=== PATIENT | male | born 1995 | race Caucasian/White ===

== ENCOUNTER 2017-06-29 16:06 | Emergency (ER) | payer BC, OTHER ==
--- NOTE | 2017-06-29 16:19 | ERNOTE ---
Medical Problem HPI - Narrative Date of Service: 06/29/17 - General Chief Complaint: Laceration Time Seen by Provider: 06/29/17 16:16 Source: patient, RN notes reviewed Exam Limitations: no limitations - Immun/Allergies/Home Medications Immunizations: IMMUNIZATION HX Immunizations Up to Date Yes History of Influenza Vaccine No Hx Pneumococcal Vaccination No Allergies/Adverse Reactions: Allergies No Known Allergies Allergy (Verified 06/29/17 16:14) Home Medications: HOME MEDICATIONS NK [No Home Medication] 06/29/17 [Last Taken Unknown] - History of Present History Narrative: 22 year old male with a laceration to his right palm. He was pushing an engine with a pry bar, when the bar slipped and cut his hand. He was working at [employer] at the time. Date (Duration): 06/29/17 Review of Systems - Review of Systems Constitutional: Absent: recent illness, fever, malaise EYE: Present: no symptoms reported ENT: Present: no symptoms reported Respiratory: Present: no symptoms reported Cardiology: Present: no symptoms reported Gastrointestinal/Abdominal: Present: no symptoms reported Genitourinary: Present: no symptoms reported Musculoskeletal: Absent: joint pain, joint swelling Skin: Absent: rash, lesions, lumps, change in color Neurological: Absent: dizziness/light-headedness, weakness, numbness, tingling Endocrine: Present: no symptoms reported Hematologic/Lymphatic: Absent: easy bruising, easy bleeding Psych: Present: no symptoms reported - Patient's Past Medical History Patient History - Medical: No pertinent hx Patient History - Cardiac/Respiratory: No pertinent hx Patient History - Cancer: No Hx of Cancer Patient History - Surgical Procedures: Orthopedic Patient History - Other: None - Social History Living Situations: home Abuse History: No History of abuse Psych History: No pertinent hx Smoking Status: Never smoker Alcohol Use: occasionally Drug Use: none - Immunizations Immunizations Up to Date: Yes Hx Pneumococcal Vaccination: No History of Influenza Vaccine: No Physical Exam - Physical Exam General Appearance: Present: wd/wn, alert, no apparent distress Respiratory: Present: no respiratory distress, no accessory muscle use Cardiovascular/Chest: Present: normal peripheral pulses Extremity Exam: Present: normal except - - Right palm laceration, normal range of motion, no edema Neurological Exam: Present: alert, oriented, normal mood/affect Skin Exam: Present: normal color, warm/dry ED Progress - Vital Signs Patient's Vital Signs:: I have reviewed the patient's vital signs. Vital Signs: Vital Signs 06/29/17 16:09 Temperature 36.6 C Pulse Rate 100 Respiratory 16 Rate Blood Pressure 137/53 O2 Sat by Pulse 98 Oximetry - Progress/Reassessment Chief Complaint: Laceration Progress:: Improved Procedures Right Volar Hand Anesthesia: Lidocaine w/ Epi I & D Prep: betadine prep, sterile drapes applied Length of Repair/Wound (cm): 2.5 Wound's Depth/Shape: into subcutaneous, irregular, contused tissue Wound Explored: clean, to base, in bloodless field, no foreign body Wound Intervention: irrigated w/saline, debrided minimal Distal NVT: neuro/vasc intact, no tendon injury Wound Repaired With: sutures Suture Size/Type: 5-0, nylon Number of Sutures: 7 Layer Closure: Simple Wound Dressing: sterile dressing applied Complications: Pt amando procedure well Departure Clinical Impression: Hand laceration Qualifiers: Encounter type: initial encounter Foreign body presence: without foreign body Laterality: right Qualified Code(s): S61.411A - Laceration without foreign body of right hand, initial encounter - Departure Disposition: Home Follow Up Needed Condition: Good Instructions: Sutured Wound Care, [id number] Additional Instructions: Keep dressing dry and in place for 24 hours Can then wash wound gently with soap and water as needed but do not soak in water for prolonged periods of time Apply antibiotic ointment twice a day and bandage as needed Follow up for suture removal in 1 week Referrals: Dariana Silva, PAC [[facility]] -
[2017-06-29 16:49] VITALS: BP 136/56
== END 2017-06-29 17:31 | disposition home or self-care (01) ==
LOC: ER 16:06
PROC: 0JQJ0ZZ Repair Right Hand Subcutaneous Tissue and Fascia, Open Approach (ICD-10-PCS; principal; 2017-06-29)
DX: S61.411A Laceration without foreign body of right hand, initial encounter (principal); W27.8XXA Contact with other nonpowered hand tool, initial encounter; Y93.89 Activity, other specified; Y92.63 Factory as the place of occurrence of the external cause; Y99.0 Civilian activity done for income or pay